=== PATIENT | male | born 1985 | race Caucasian/White ===

== ENCOUNTER 2016-12-22 14:44 | Emergency (ER) | payer MEDICAID ==
[~2016-12-22] VITALS: Ht 170.2 cm; Wt 80.3 kg
[2016-12-22 14:48] VITALS: Ht 170.2 cm; Wt 80.3 kg
--- NOTE | 2016-12-22 14:54 | NUR ---
PROVIDER DR ROSENBERG AT BEDSIDE FOR H&P
[2016-12-22] MEDS ORDERED: NORMAL SALINE 1,000 ML IV ONE (15:07)
[2016-12-22] MEDS ORDERED: OXYC80TA PO (15:14)
[2016-12-22] MEDS ORDERED: OXYC10TA51 PO ×2 (15:14→16:52)
[2016-12-22 15:32] LABS: BASOPHILS % (AUTO) 0.4 % (0-2); EOSINOPHILS # (AUTO) 0.3 T/MM3 (0-0.5); EOSINOPHILS % (AUTO) 3.4 % (0-4); HCT - HEMATOCRIT 47.1 % (41-53); HGB - HEMOGLOBIN 16.4 GM/DL (13.5-17.5); IMMATURE GRANULOCYTE # (AUTO) 0.01 T/MM3 (0.00-0.03); IMMATURE GRANULOCYTE % (AUTO) 0.1 % (0.0-0.5); LYMPHOCYTES # (AUTO) 2.3 T/MM3 (1-4.8); LYMPHOCYTES % (AUTO) 29.3 % (23-45); MEAN CORPUSCULAR HGB 31.4 UUG (26-34); MEAN CORPUSCULAR HGB CONC(MCHC 34.8 GM/DL (31-37); MEAN CORPUSCULAR VOLUME 90.1 UM3 (80-100); MEAN PLATELET VOLUME 10.1 UM3 (9.4-12.4); MONOCYTES # (AUTO) 0.8 T/MM3 (0-0.8); MONOCYTES % (AUTO) 10.7 % (0-9.0); NEUTROPHILS #(AUTO)-ABSOLUTE 4.3 T/MM3 (1.8-7.7); NEUTROPHILS % (AUTO) 56.1 % (33-66); RED BLOOD COUNT 5.23 M/MM3 (4.50-5.90); WBC - WHITE BLOOD COUNT 7.7 T/MM3 (4.5-11.0)
[2016-12-22 15:44] LABS: ACETAMINOPHEN < 10 UG/ML (10-30); ALBUMIN 4.7 G/DL (3.5-5.0); ALBUMIN/GLOBULIN RATIO 1.6 RATIO (1.1-2.2); ALKALINE PHOSPHATASE 79 U/L (38-126); ALT (SGPT) 38 U/L (21-72); ANION GAP 14 MEQ/L (5-15); AST (SGOT) 23 U/L (17-59); BUN/CREATININE RATIO 18 RATIO (6-26); CALCIUM 9.7 MG/DL (8.4-10.2); CHLORIDE 106 MEQ/L (98-107); CO2 - CARBON DIOXIDE 25 MEQ/L (22-30); CREATININE 0.8 MG/DL (0.8-1.5); ETHANOL <10 MG/DL (<10); GLOMERULAR FILTRATION RATE 112; GLUCOSE 115 MG/DL (75-110); POTASSIUM 3.6 MEQ/L (3.6-5); SALICYLATE < 1.0 MG/DL (2-20); SODIUM 145 MEQ/L (134-144); TOTAL PROTEIN 7.7 G/DL (6.3-8.2)
[2016-12-22] MEDS ORDERED: LORAZEPAM 0.5 MG TABLET PO ONE (15:45)
[2016-12-22] MEDS ORDERED: ONDANSETRON ODT 4 MG TAB PO ONE (15:45)
--- NOTE | 2016-12-22 16:05 | DI ---
INDICATION: ITS.REASON: dyspnea PROCEDURE: CHEST 2-VIEWS UPRIGHT (PA \T\ LAT) Encounter: Initial COMPARISON: None FINDINGS: The lungs are clear without evidence of focal abnormal airspace opacity. There is no pleural effusion or pneumothorax. The heart size, mediastinal contours and pulmonary vascularity are within normal limits. There is no significant skeletal abnormality. IMPRESSION: No acute cardiopulmonary disease. .
--- NOTE | 2016-12-22 16:20 | NUR ---
UPDATE PATIENT LYING IN BED, IVF INFUSING. PATIENT REPORTS NAUSEA AND ANXIETY HAVE IMPROVED.
[2016-12-22 16:28] LABS: THYROID STIM HORMONE-TSH 1.71 MIU/L (0.47-4.68)
--- NOTE | 2016-12-22 16:33 | NUR ---
ACTIVITY PATIENT AMBULATORY TO RESTROOM, TOLERATES ACTIVITY WELL.
[2016-12-22 16:40] LABS: BLOOD, URINE NEGATIVE (NEGATIVE); COLOR,URINE YELLOW (YELLOW); LEUKOCYTE ESTERASE ,URINE NEGATIVE (NEGATIVE); NITRITE,URINE NEGATIVE (NEGATIVE)
--- NOTE | 2016-12-22 16:40 | ERPDOC ---
Departure Disposition Decision Date: Dec 22, 2016 Disposition Decision Time: 16:47 Disposition: 62 TO REHAB UNIT/FACILITY Impression Impression Impression: Primary Impression: Narcotic addiction Severity: Moderate Condition: Stable Seen By: Physician only Referrals: MICHAEL ESTRADA MD (Family) Problems/Meds/Labs Reviewed?: Yes Medications reviewed and manag: Yes Additional Instructions: He's been given a taper of oxycodone. 20 mg 4 times daily the first day, 20 mg 3 times daily the second day 20 mg twice daily the third day and 20 mg once daily on the fourth day. Follow up care ordered?: Yes Mental Status: Alert, Oriented Scripts Oxycodone HCl (Oxycodone HCl) 10 Mg Tablet 1-2 TAB PO QID for PAIN, #20 TAB On day 1, he may take 2 tablets up to 4 times daily. On day 2, he may take 2 tablets up to 3 times daily. On day 3, he may take 2 tablets twice daily. On day 4, he may take 1 tablet twice daily. Then stop. Prov: DANA ROSENBERG MD 12/22/16 HPI - General Medical General Chief Complaint: Accidental Overdose Stated Complaint: POSS OVERDOSE Time Seen by Provider: 14:53 HPI - General Medical Initial Comments 31-year-old gentleman with narcotic addiction. Patient is self-referred himself to [facility] for treatment of narcotic addiction. He lost his job last week due to feeling a drug screen. His is becoming frustrated and is tired of covering for him. He is concerned his children will witnessed him overdose. He has had increase his dose to manage withdrawals and pain and now takes upwards of 6-700 mg a day of oxycodone sometimes. So started mixing benzos with it. He has not had any benzodiazepines since Sunday. So his withdrawals from the benzodiazepine her about over. However he is still taking the oxycodone. The staff at the rehabilitation were concerned about the amount he was taking and wanted him checked out before he came in to be admitted. Therefore he is in the ED for evaluation. Patient states he often snorts the pills rather than swallowing them. He did take approximately 100 mg earlier today and then 40 mg at noon. I called and spoke with the intake nurse and she verified his story. He does get significant diarrhea when he is withdrawing also has some nausea. He gets cold sweats as well. Allergies: Coded Allergies: No Known Allergies (Unverified , 12/22/16) Past History Past Medical History Pt denies signifigant PMH Surgical History Denies Surgeries Family History Family History: Negative Social History Smoking Status: Current every day smoker Record Review Pertinent history updated: Yes Review of Systems Pulmonary Respiratory: see HPI GI Upper Abdomen: see HPI Musculoskeletal General: see HPI Psychiatric Psychiatric: see HPI All other Systems All Other Systems: Reviewed and Negative Physical Exam General General Nourishment: well nourished, well developed, no acute distress General Body Habitus: well groomed Vitals and Pain First Documented Vital Signs Date Time Temp Pulse Resp B/P Pulse Ox O2 Delivery O2 Flow Rate FiO2 12/22/16 14:48 98.2 89 19 155/77 96 Room Air Weight: Kilograms: 80.300 Height (feet): 5 Height (inches): 7.00 Triage Pain Scale: Normal Exams: Head: Normocephalic w/o trauma Eyes: Pupils are PERRLA w/ EOMI, No scleral icterus, irritation, or foreign bodies noted Chest/Resp: Clear all agrawal, with good airflow, and symmetry bilaterally CV: Regular rate and rhythm, without murmur or gallop, Pulses 2+ all extremities, capillary refill, <2 seconds all ext., no pedal edema noted Abdomen: Bowel sounds positive, soft, non-tender, non-distended, no hepatosplenomegaly, masses or bruits noted Neurologic: Patient is alert, and oriented, cranial nerves, motor/sensory/ cerebellar, exams w/o gross deficits, to observation Psychiatric: Patient exhibits, appropriate attention, emotion and affect Differential Diagnoses Considering: Alcohol Intoxication, Drug Overdose, Encephalitis, Hypo/ Hyperglycemia, Medication Effect, Metabolic, Psychosis Progress Results/Orders Orders Procedure Category Date Status Time Iv Lock (Ed Only) EDM 12/22/16 Transmitted 15:07 Nothing By Mouth (Ed EDM 12/22/16 Transmitted Only) 15:07 Cbc W/Auto LAB 12/22/16 Complete Diff-Reflex Manual 15:07 Cmp - Comprehensive LAB 12/22/16 Complete Metabolic 15:07 Ethanol LAB 12/22/16 Complete 15:07 Drug Screen LAB 12/22/16 [place] [facility] [place] Acetaminophen LAB 12/22/16 Complete 15:07 Salicylate LAB 4/28/17 Complete 15:07 Ua, Dip Wreflex LAB 12/22/16 Logged [employer] 15:07 Tsh - Thyroid Stim LAB 12/22/16 Complete Hormone 15:07 Chest, Pa & Lateral RAD 12/22/16 Resulted 15:07 Normal Saline (Normal PHA 12/22/16 Complete Saline Iv) 15:07 Ondansetron Odt PHA 12/22/16 Complete (Zofran Odt) 15:45 Lorazepam (Ativan) PHA 12/22/16 Complete 15:45 Lab Results Laboratory Tests Test 12/22/16 15:26 White Blood Count 7.7T/MM3 Red Blood Count 5.23M/MM3 Hemoglobin 16.4GM/DL Hematocrit 47.1% Mean Corpuscular Volume 90.1UM3 Mean Corpuscular Hemoglobin 31.4UUG Mean Corpuscular Hemoglobin Concent 34.8GM/DL RDW Standard Deviation 43.0FL Platelet Count 254T/MM3 Mean Platelet Volume 10.1UM3 Immature Granulocyte % (Auto) 0.1% Neutrophils (%) (Auto) 56.1% Lymphocytes (%) (Auto) 29.3% Monocytes (%) (Auto) 10.7% Eosinophils (%) (Auto) 3.4% Basophils (%) (Auto) 0.4% Absolute Immature Granulocyte (auto 0.01T/MM3 Absolute Neutrophils (auto) 4.3T/MM3 Absolute Lymphocytes (auto) 2.3T/MM3 Absolute Monocytes (auto) 0.8T/MM3 Absolute Eosinophils (auto) 0.3T/MM3 Absolute Basophils (auto) 0.0T/MM3 Turbidity < 20 Sodium Level 145MEQ/L Potassium Level 3.6MEQ/L Chloride Level 106MEQ/L Carbon Dioxide Level 25MEQ/L Anion Gap 14MEQ/L Blood Urea Nitrogen 14.0MG/DL Creatinine 0.8MG/DL Glomerular Filtration Rate Calc 112 BUN/Creatinine Ratio 18RATIO Glucose Level 115MG/DL Calculated Osmolality 281MOSM/KG Calcium Level 9.7MG/DL Total Bilirubin 0.60MG/DL Icterus Index < 2 Aspartate Amino Transf (AST/SGOT) 23U/L Alanine Aminotransferase (ALT/SGPT) 38U/L Alkaline Phosphatase 79U/L Total Protein 7.7G/DL Albumin 4.7G/DL Globulin 3.0G/DL Albumin/Globulin Ratio 1.6RATIO Thyroid Stimulating Hormone (TSH) 1.71MIU/L Chemistry Specimen Hemolysis < 15 Salicylates Level < 1.0MG/DL Acetaminophen Level < 10UG/ML Alcohol, Quantitative <10MG/DL Medications Current ED Medications Sodium Chloride (Normal Saline IV) 1,000 ml @ 1,000 mls/hr Q1H ONCE IV Last administered on 12/22/16 15:26; Start 12/22/16 at 15:07; Stop 12/22/16 at 16:06 ; Status DC Ondansetron HCl (Zofran Odt) 4 mg O ONCE PO Last administered on 12/22/16 15: 37; Start 12/22/16 at 15:45; Stop 12/22/16 at 15:46; Status DC Lorazepam (Ativan) 0.5 mg O ONCE PO Last administered on 12/22/16 15:37; Start 12/22/16 at 15:45; Stop 12/22/16 at 15:46; Status DC Progress Progress Labs are checked, CBC CMP is appropriate. Patient is medically stable at this time. Discussed with him that we don't see severe health issues from narcotic withdrawal likely due with benzodiazepine or alcohol withdrawal. However he certainly will be uncomfortable. I am okay to write him a short taper to be used at the rehabilitation center only because the rehabilitation nurse is also willing to manage it. Start him on oxycodone 20 mg 4 times daily then taper by 20 mg daily. Prescription is written. Patient was given 0.5 mg Ativan and 4 mg Zofran while he was here. DANA ROSENBERG MD Dec 22, 2016 16:40
[2016-12-22 16:50] LABS: AMPHETAMINE SCREEN,URINE NEGATIVE; BARBITURATE SCREEN,URINE NEGATIVE; BENZODIAZEPINES SCREEN,URINE NEGATIVE; CANNABINOID SCREEN,URINE POSITIVE; COCAINE SCREEN,URINE NEGATIVE; METHADONE SCREEN, URINE NEGATIVE; METHAMPHETAMINE SCREEN, URINE NEGATIVE; OPIATE SCREEN,URINE NEGATIVE; PHENCYCLIDINE SCREEN,URINE NEGATIVE; TRICYCLIC ANTIDEPRESSANT,URINE NEGATIVE
[2016-12-22 16:59] VITALS: BP 135/91; PULSE 79; RESP 19; TEMP 98.2; O2SAT 99
== END 2016-12-22 16:59 ==
LOC: ED 14:44
DX: F11.20 Opioid dependence, uncomplicated (principal)
CPT/HCPCS: 71020; 80053; 80306; 80307; 81003; 84443; 85025; 96360; 99284; J7030